=== PATIENT | female | born 1955 | race Caucasian/White ===

== ENCOUNTER → 2016-07-12 | Outpatient (CLI) | payer OTHER ==
--- NOTE | 2016-07-12 11:32 | KCIC ---
Bilateral digital screening mammograms with CAD: HISTORY Routine screening. COMPARISON Comparison is made to previous studies dated 07/11/2015 and 12/12/2013. FINDINGS Breast density category A. The skin and nipples show no abnormalities. No abnormal lymph nodes are seen in the axilla. The breast parenchyma is predominately fatty. There are no dominant masses, suspicious calcifications or architectural distortions. IMPRESSION No evidence of malignancy. Recommend routine annual mammographic screening. This study was interpreted with the benefit of Computerized Aided Detection (CAD). Mammography is not 100% sensitive in detecting breast cancer. Therefore, a self breast exam and a clinical breast exam are very important. A negative mammogram does not negate a clinically suspicious finding and should not result in a delay in biopsying a clinically suspicious abnormality. BI-RADS category 1. Negative. This patient's information has been entered into a reminder system for the patient to be notified with the results of this examination and a target date for her next mammograms. Electronically signed by: Cherelle Newman MD (Jul 12, 2016 11:30:38)
== END | disposition home or self-care (01) ==
LOC: KCIC MAMMO 09:33
PROVIDERS: ATTEND Family Medicine
DX: Z12.31 Encounter for screening mammogram for malignant neoplasm of breast (principal)
CPT/HCPCS: G0202; 77067

== ENCOUNTER → 2016-10-08 | Outpatient (CLI) | payer OTHER ==
--- NOTE | 2016-10-08 14:51 | KCIC ---
PQRS Compliance Statement: One or more of the following individualized dose reduction techniques were utilized for this examination: 1. Automated exposure control 2. Adjustment of the mA and/or kV according to patient size 3. Use of iterative reconstruction technique CT ABD PELV W/ORAL IV CONTRAST Clinical Indication: Left flank pain x1 week, nausea. Comparison: None. Technique: Helical CT imaging of the abdomen and pelvis is performed after 100 cc Omnipaque 300 IV contrast. Oral contrast also given. Findings: Lung bases clear. Cardiac size normal. Cholelithiasis. Calcified granulomas in the spleen. Liver, pancreas, adrenal glands, and abdominal aortic caliber are normal. Moderate atherosclerotic calcification of the abdominal aorta. Mild bilateral perinephric stranding, can be normal variant in a patient this age. There is no hydronephrosis. Small bilateral renal cysts. Largest cyst is in the upper pole of the left kidney measuring up to 4.8 cm. Stomach unremarkable. No dilated small bowel. No colon wall thickening. The appendix is normal. No abdominal adenopathy or free fluid. The urinary bladder is normal. Uterus is absent. No pelvic free fluid. Degenerative spondylosis thoracolumbar spine. IMPRESSION: 1. No acute abdominal or pelvic abnormality. 2. Cholelithiasis. 3. Bilateral renal cysts. Electronically signed by: Librado Duvall MD (10/08/2016 2:48 PM)
== END | disposition home or self-care (01) ==
LOC: KCIC CT 11:55
PROVIDERS: ATTEND Nurse Practitioner Family
DX: K80.20 Calculus of gallbladder without cholecystitis without obstruction (principal); N28.1 Cyst of kidney, acquired; R11.0 Nausea
CPT/HCPCS: 74177

== ENCOUNTER → 2017-06-13 | Outpatient (CLI) | payer OTHER | END | disposition home or self-care (01) | LOC: KCIC CT 09:04 | DX: R20.0 Anesthesia of skin (principal); J34.89 Other specified disorders of nose and nasal sinuses | CPT/HCPCS: 70450 ==

== ENCOUNTER → 2017-06-15 | Outpatient (CLI) | payer OTHER | END | disposition home or self-care (01) | LOC: KCIC 14:00 | DX: G54.0 Brachial plexus disorders (principal); H02.402 Unspecified ptosis of left eyelid; L90.5 Scar conditions and fibrosis of skin; M62.81 Muscle weakness (generalized); I70.0 Atherosclerosis of aorta; R20.2 Paresthesia of skin | CPT/HCPCS: 71046 ==

== ENCOUNTER → 2018-06-29 | Outpatient (CLI) | payer OTHER ==
--- NOTE | 2018-06-29 14:13 | KCIC ---
Bone densitometry 06/29/2018 12:30 PM Indication: Postmenopausal. Diabetes. Thyroid disease. Screening exam for osteoporosis. Comparison Study: None available. Discussion: Bone Densitometry was performed with dual photon absorption of the lumbar spine and proximal left femur. Lumbar Spine: Bone average density is 1.454g/cm2 for L1-L4. T-Score is 3.7. Proximal left femur:: Bone average density is 1.190 g/cm2. T-Score is 2.0. IMPRESSION: Normal bone mineral density Note: Definitions established by the World Health Organization: Normal: T-score is -1.0 or above. Osteopenia: T-score is between -1.0 and -2.5. Osteoporosis: T-score is -2.5 or below. Electronically signed by: Kem Andersen MD (06/29/2018 2:10 PM) [facility]
--- NOTE | 2018-06-29 17:17 | KCIC ---
Bilateral digital screening mammograms with 3-D tomosynthesis: Reason for examination: Routine screening. Comparison is made to previous studies dated 07/12/2016 and 07/11/2015. Bilateral mammograms in CC and oblique projections were obtained with 2-D imaging and 3-D tomosynthesis imaging on a [employer] Inspiration unit and reviewed on the workstation. Interpretation was made with the benefit of CAD. The skin and nipples show no abnormalities. No abnormal axillary lymph nodes are seen. The breast parenchyma is predominantly fatty. (Breast density: Category A.) There are no dominant masses, suspicious calcifications or architectural distortion. Impression: No evidence of malignancy. Recommend routine screening. BI-RAD Category 1: Negative. "Our facility is accredited by the [employer] Mammography Program." This patient's information has been entered into a reminder system for the patient to be notified with the results of her examination and a target date for the next mammogram. Electronically signed by: Jenny Newman MD (06/29/2018 5:15 PM) [facility]
== END | disposition home or self-care (01) ==
LOC: KCIC DEXA 11:48
PROVIDERS: ATTEND Family Medicine
DX: Z12.31 Encounter for screening mammogram for malignant neoplasm of breast (principal); Z13.820 Encounter for screening for osteoporosis; E11.9 Type 2 diabetes mellitus without complications; E07.9 Disorder of thyroid, unspecified; Z78.0 Asymptomatic menopausal state
CPT/HCPCS: 77063; 77067; 77080

== ENCOUNTER → 2018-08-16 | Outpatient (CLI) | payer OTHER ==
--- NOTE | 2018-08-16 15:51 | KCIC ---
MRI study of the right ankle without contrast Clinical indications: Chronic lateral right ankle pain and swelling. The patient fell 1 year ago. TECHNIQUE: Noncontrast MRI sequences of the right ankle were performed in all 3 planes. COMPARISON: None available. FINDINGS: No bone contusion or fracture or marrow infiltrative process is seen. No focal osteochondral abnormality of the dome of the talus or the tibial plafond is seen. No osseous tarsal coalition is seen. The sinus tarsi is unremarkable and the cervical and talocalcaneal ligaments are intact. There is a small plantar spur of the calcaneus. Plantar aponeurosis is intact and no soft tissue edema or bone marrow edema is seen here. Mild chronic tendinosis of the Achilles tendon is seen. No high-grade partial tear or complete tear of this tendon is evident. Mild pre-Achilles bursitis is seen. There is pre-Achilles fat pad soft tissue edema present. The peroneal tendons are intact without tenosynovitis. The flexor tendons are intact without tenosynovitis. The extensor tendons are intact without tenosynovitis. The flexor and peroneal and extensor retinacular ligaments are intact. The distal interosseous ligament and the anterior and posterior tibiofibular ligaments are intact. The anterior talofibular ligament is intact. There is thickening and increased signal within the posterior talofibular ligament consistent with a ligament sprain. No disruption of this ligament is seen otherwise. The spring ligament and deltoid ligament and calcaneofibular ligament are intact. IMPRESSION: No fracture or osteochondral abnormality. Mild chronic tendinosis of the Achilles tendon. There is soft tissue edema within the pre-Achilles fat pad and mild pre-Achilles bursitis. There is a small traction spur of the posterior aspect of the calcaneus at the attachment of Achilles tendon. Ligament sprain of the posterior talofibular ligament without disruption. Electronically signed by: Malcom Ruiz MD (08/16/2018 3:48 PM) [facility]
== END | disposition home or self-care (01) ==
LOC: KCIC MRI 13:35
PROVIDERS: ATTEND Orthopaedic Surgery Foot and Ankle Surgery
DX: S93.691A Other sprain of right foot, initial encounter (principal); M76.61 Achilles tendinitis, right leg; E65 Localized adiposity; M77.31 Calcaneal spur, right foot; R60.0 Localized edema; X58.XXXA Exposure to other specified factors, initial encounter; Y93.89 Activity, other specified; Y92.89 Other specified places as the place of occurrence of the external cause; Y99.8 Other external cause status
CPT/HCPCS: 73721

== ENCOUNTER → 2018-12-27 | Outpatient (CLI) | payer OTHER ==
[~2018-12-27] MED LIST: PERFLUTREN PROTEIN-A MICROSPHR 0.22 MG/ML 3 ML VIAL. IV ONE
--- NOTE | 2018-12-27 16:24 | CARD ---
MR#: [id number] Date of Study: 12/27/2018 Ordering Physician: BASILIA CLAY, Referring Physician: BASILIA CLAY, Tech: Josey Ramesh APPROVED REPORT EXAM: Two-dimensional and M-mode echocardiogram with Doppler, color Doppler with contrast. Other Information Quality : FairHR: 61bpm Technically limited study due to body habitus. INDICATION Murmur Echo Enhancing Agent Indication: Endocardial border delineation Agent/Amount Used: Optison 10mL RISK FACTORS Hypertension Hyperlipidemia Diabetes Previous smoker 2D DIMENSIONS RVDd2.9 (2.9-3.5cm)Left Atrium(2D)3.8 (1.6-4.0cm) IVSd1.2 (0.7-1.1cm)Aortic Root(2D)3.0 (2.0-3.7cm) LVDd5.0 (3.9-5.9cm)LVOT Diameter2.0 (1.8-2.4cm) PWd1.2 (0.7-1.1cm)LVDs2.6 (2.5-4.0cm) FS (%) 47.4 %SV94.1 ml LVEF(%)78.6 (>50%) Aortic Valve AoV Peak Alberto.151.5cm/sAoV VTI30.1cm AO Peak GR.9.2mmHgLVOT Peak Alberto.121.2cm/s LVOT VTI 28.83cmAO Mean GR.4mmHg HIMANSHU (VMAX)1.95mn5QEF (VTI)3.07cm2 Mitral Valve MV E Lxuschzh32.2cm/sMV DECEL [id number] MV A Pnrzdltv69.5cm/sMV YLX07nt E/A Ratio0.9MVA (PHT)3.92cm2 TDI E/Lateral E'8.9E/Medial E'9.4 Pulmonary Valve PV Peak Pdlqvsbx424.4cm/sPV Peak Grad.5mmHg Tricuspid Valve TR P. Qetikfco524nv/sTR Peak Gr.16mmHg Pulmonary Vein S1 Ufuhasmr66.3cm/sD2 Flxubnxb46.6cm/s PVa dczvvkoc066otsu LEFT VENTRICLE The left ventricle is normal size. There is mild concentric left ventricular hypertrophy. The left ve ntricular systolic function is normal and the ejection fraction is within normal range. The Ejection Fraction is 60-65%. There is normal LV segmental wall motion. Transmitral Doppler flow pattern is Gra de I-abnormal relaxation pattern. RIGHT VENTRICLE The right ventricle is normal size. There is normal right ventricular wall thickness. The right ventr icular systolic function is normal. ATRIA The left atrium is borderline dilated. The right atrium size is normal. The interatrial septum is int act with no evidence for an atrial septal defect or patent foramen ovale as noted on 2-D or Doppler i maging. AORTIC VALVE The aortic valve is normal in structure and function. Doppler and Color Flow revealed trace aortic re gurgitation. There is no significant aortic valvular stenosis. MITRAL VALVE The mitral valve is normal in structure and function. There is no evidence of mitral valve prolapse. There is no mitral valve stenosis. Doppler and Color-flow revealed trace mitral regurgitation. TRICUSPID VALVE The tricuspid valve is normal in structure and function. Doppler and Color Flow revealed no tricuspid valve regurgitation noted. There is no tricuspid valve stenosis. PULMONIC VALVE The pulmonic valve is not well visualized. Doppler and Color Flow revealed no pulmonic valvular regur gitation. GREAT VESSELS The aortic root is normal in size. The IVC was not visualized. PERICARDIAL EFFUSION There is no evidence of significant pericardial effusion. Critical Notification Critical Value: No <Conclusion> The left ventricular systolic function is normal and the ejection fraction is within normal range. Th e Ejection Fraction is 60-65%. There is normal LV segmental wall motion. Signed by : Basilia Clay, Electronically Approved : 12/27/2018 16:24:19
== END | disposition home or self-care (01) ==
LOC: ECHO 12:22
PROVIDERS: ATTEND Internal Medicine Cardiovascular Disease
DX: I51.7 Cardiomegaly (principal)
CPT/HCPCS: C8929; Q9956

== ENCOUNTER → 2020-12-03 | Outpatient (CLI) | payer MEDICARE ==
--- NOTE | 2020-12-03 15:38 | KCIC ---
Bilateral digital screening mammograms: Reason for examination: Routine screening. Comparison is made to previous studies dated back to 07/11/2015. Interpretation is made with the benefit of CAD. The skin and nipples show no abnormalities. No abnormal lymph nodes are seen. The breast parenchyma i s predominantly fatty. (Breast density: Category A.) There are no dominant masses, suspicious calcifi cations or architectural distortions. A few benign calcifications are again seen. Impression: No evidence of malignancy. Recommend routine screening. BI-RADS Category 2: Benign. "Our facility is accredited by the [employer] Mammography Program." This patient's information has been entered into a reminder system for the patient to be notified wit h the results of her examination and a target date for the next mammogram. Electronically signed by: Jenny Newman MD (12/03/2020 3:36 PM) [id number]
== END ==
LOC: KCIC MAMMO 12:38
PROVIDERS: ATTEND Family Medicine
DX: Z12.31 Encounter for screening mammogram for malignant neoplasm of breast (principal)
CPT/HCPCS: 77067

== ENCOUNTER → 2020-12-26 | Outpatient (CLI) | payer MEDICARE ==
--- NOTE | 2020-12-26 15:37 | KCIC ---
EXAM: Chest, 2 views. HISTORY: Long-term medication use. COMPARISON: None. FINDINGS: 2 views of the chest are obtained. There is no infiltrate, pleural effusion or pneumothorax . The heart is normal in size. IMPRESSION: No acute pulmonary finding. Electronically signed by: Zarina Gonsalez MD (12/26/2020 3:34 PM) [id number]
== END ==
LOC: KCIC 15:16
PROVIDERS: ATTEND Physician Assistant
DX: Z79.899 Other long term (current) drug therapy (principal)
CPT/HCPCS: 71046